=== PATIENT | female | born 1980 | race Two or more races ===

== ENCOUNTER 2016-08-05 00:32 | Inpatient (IN) | payer OTHER ==
[2016-08-05] MEDS ORDERED: HYDROMORPHONE HCL 1 MG/ML SYRINGE ONE ×2 (01:01→03:53)
[2016-08-05 02:06] LABS: ABSOLUTE NEUTROPHIL COUNT 11.7 K/mm3 (1.8-7.7); BASO % 0.3 % (0.2-1.0); EOS % 0.2 % (0.9-2.9); HEMATOCRIT 32.8 % (37.0-47.0); HEMOGLOBIN 10.6 gm/l (12.0-16.0); IMM NEUT # 0.1 K/mm3 (0-0.2); IMM NEUT% 0.3 % (0-1); LYMPH % 13.7 % (15-45); MEAN CELL VOLUME 78.3 fl (81.0-99.0); MEAN CORPUSCULAR HEMOGLOBIN 25.3 pg (27.0-31.0); MEAN CORPUSCULAR HGB CONC 32.3 g/dl (33.0-37.0); MEAN PLATELET VOLUME 11.4 fl (7.4-10.4); MONO # 0.7 (0.0-0.8); MONO % 5.1 % (4-12); NEUT % 80.4 % (43-75); PLATELET COUNT 272 K/mm3 (130-400); RED CELL DISTRIBUTION WIDTH 13.9 % (11.5-14.5)
[2016-08-05 02:16] LABS: ALB/GLOB RATIO 1.1 (>1.0); ALBUMIN 3.6 gm/dL (3.5-5.7); CALCIUM 8.6 mg/dL (8.6-10.3)
[2016-08-05] MEDS ORDERED: LACTATED RINGERS 1,000 ML ONE (03:34)
[2016-08-05] MEDS ORDERED: FENTANYL 5 ML ONE (03:41)
[2016-08-05] MEDS ORDERED: MIDAZOLAM HCL 1 MG/ML 2ML VIAL ONE ×2 (03:41→04:46)
[2016-08-05] MEDS ORDERED: ONDANSETRON 4 MG/2ML 2 ML VIAL ONE ×2 (03:53→05:33)
[2016-08-05] MEDS ORDERED: CEFAZOLIN SODIUM 2 GRAM DUPLEX 2 G in Premix (D5W) 50 ml 1 EACH IV PRN (04:14)
[2016-08-05] MEDS ORDERED: LIDOCAINE 1% 2 ML VIAL ID PRN (04:14)
[2016-08-05] MEDS ORDERED: CEFAZOLIN SODIUM 1,000 MG VIAL ONE (04:35)
[2016-08-05] MEDS ORDERED: ROCURONIUM BROMIDE 10 MG/ML DOSE IV ONE (04:35)
[2016-08-05] MEDS ORDERED: DIPHENHYDRAMINE HCL 50 MG/1 ML VIAL ONE (04:35)
[2016-08-05] MEDS ORDERED: LIDOCAINE 2% (MULTI DOSE) 10 ML VIAL ONE (04:35)
[2016-08-05] MEDS ORDERED: PROPOFOL 20 ML IV ONE (04:35)
[2016-08-05] MEDS ORDERED: GLYCOPYRROLATE 0.2 MG/ML 1ML VIAL ONE (04:38)
[2016-08-05] MEDS ORDERED: NEOSTIGMINE METHYLSULFATE 1 MG/ML DOSE ONE (04:38)
[2016-08-05] MEDS ORDERED: ATROPINE SULFATE 0.4 MG/1 ML VIAL IV PRN (04:53)
[2016-08-05] MEDS ORDERED: PROMETHAZINE HCL 25 MG/ML VIAL IM PRN (04:53)
[2016-08-05] MEDS ORDERED: NALOXONE HCL 0.4 MG/ML VIAL IV PRN (04:53)
[2016-08-05] MEDS ORDERED: HYDROMORPHONE HCL 1 MG/ML SYRINGE IV PRN (04:53)
[2016-08-05] MEDS ORDERED: SODIUM CHLORIDE 0.9% 1,000 ML IV SCH (05:00)
[2016-08-05] MEDS ORDERED: KETOROLAC TROMETHAMINE 30 MG/ML 1 ML VIAL ONE (05:35)
[2016-08-05] MEDS: FENTANYL 100 MCG/2 ML VIAL IV PRN ×2 (06:32→06:39)
[2016-08-05] MEDS ORDERED: DIPHENHYDRAMINE HCL 50 MG/1 ML VIAL IV PRN (06:59)
[2016-08-05] MEDS ORDERED: MENTHOL/CETYLPYRD 1 EACH LOZENGE PO PRN (06:59)
[2016-08-05] MEDS ORDERED: DOCUSATE SODIUM 100 MG CAPSULE PO PRN (06:59)
[2016-08-05] MEDS ORDERED: MAGNESIUM HYDROXIDE/AL HYDROX 30 ML UDCUP PO PRN (06:59)
[2016-08-05] MEDS ORDERED: BLISTEX LIPSTICK 1 EACH TP PRN (06:59)
[2016-08-05] MEDS ORDERED: KETOROLAC TROMETHAMINE 30 MG/ML 1 ML VIAL IV SCH (06:59)
[2016-08-05] MEDS ORDERED: ACETAMINOPHEN 325 MG TABLET PO PRN (06:59)
[2016-08-05] MEDS ORDERED: MAG HYDROX/AL HYDROX/SIMETH 30 ML UDCUP PO PRN (06:59)
[2016-08-05] MEDS ORDERED: HYDROMORPHONE HCL 2 MG/ML SYRINGE IV PRN (07:40)
[2016-08-05 07:46] VITALS: BMI 29.2
[2016-08-05] MEDS: INSULIN REGULAR HUMAN (DOSE) 100 UNITS/1 ML SUB-Q SCH ×2 (07:56→11:43)
[2016-08-05] MEDS ORDERED: PUMP TUBING ONE (07:57)
[2016-08-05] MEDS: CEFTRIAXONE 1 GRAM DUPLEX 1 G in Premix (D5W) 50 ml 1 EACH IV SCH ×2 (08:03→19:50)
[2016-08-05] MEDS: LACTATED RINGERS 1,000 ML IV SCH ×3 (08:03→23:32)
--- NOTE | 2016-08-05 08:25 | HP ---
Radha Trinidad [id number] DATE OF ADMISSION: 08/05/2016 PREOPERATIVE DIAGNOSES: 1. Right lower quadrant pain. 2. Right ovarian cyst. 3. Possible ovarian torsion. PROCEDURE: Exploratory laparotomy with right salpingo-oophorectomy. HISTORY AND PHYSICAL: The patient is a 36-year-old 5, para 4-0-1-4 with last menstrual period of 07/12/2016. The patient initially started having right lower quadrant one month ago and was seen in the emergency room. At that time, an ultrasound was performed which showed a right ovary measuring 5.0 x 4.7 x 5.2 cm. There was a flow identified within the right ovary and there is a nonvascular low echogenicity structure seen in the right ovary measuring 2.9 x 2.6 x 2.6 cm and this was consistent with the CT scan report. The patient states that her pain initially got improved since that emergency room visits, however, subsequently last night she woke up feeling diaphoretic and with right lower quadrant pain and came back to the emergency department. A repeat ultrasound shows a 10 cm right ovary with a 7.8 cm right ovarian mass. Patient's HCG was negative. Patient was examined and found to be in exquisite pain. 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 PAST MEDICAL HISTORY: Patient states that she is diabetic and on metformin. Patient states that her morning fasting glucose are typically less than 100 and her glucoses throughout the day are in the 100's, however, it is noted that on patient's basic metabolic panel both last month and this month her glucoses were greater than 300. PAST SURGICAL HISTORY: section x4. ALLERGIES: No known drug allergies. MEDICATIONS: Patient is currently on metformin. PHYSICAL EXAMINATION: GENERAL: Patient is alert and appropriate. She is guarding and appears to be in pain. HEART: Regular rate and rhythm. LUNGS: Clear to auscultation bilaterally. ABDOMEN: Obese, soft, however, with right lower quadrant tenderness. Normal active bowel sounds. Patient appears to be guarding. PELVIC: There is right adnexal fullness and tenderness. EXTREMITIES: Normal. ASSESSMENT AND PLAN: This is a 36-year-old female with 10 cm right ovary and ovarian cyst. There was blood flow seen on the ultrasound to the ovary, however, patient's clinical presentation is concerning for ovarian torsion. I have recommended exploratory laparotomy with right salpingo-oophorectomy at this time. Procedure indications and risks have been reviewed including risks of bleeding, infection, or injury to bowel, bladder, or other organs. Preoperative instructions and postoperative expectations have been reviewed. The patient's laboratory studies are notable for a white blood cell of 14.6, hemoglobin of 10.6, and a glucose of 329. We will proceed with surgery and address patient's diabetic issues postoperatively. Thank you very much for this dictation. JOB: [id number]
[2016-08-05] MEDS: METRONIDAZOLE 500 MG/NS 100 ML 500 MG in Premix (NS) 100 ml 1 EACH IV SCH ×2 (08:41→20:58)
--- NOTE | 2016-08-05 08:48 | US ---
Clinical indication: Right lower quadrant pain. Possible adnexal lesion. Technique: Limited Transabdominal pelvic sonography was performed.To better visualize the adnexa transvaginal sonography was performed. Comparison: Prior exam dated 07/10/2016. Findings: Sonographic interrogation the right ovary exhibits enlargement and heterogeneity. The ovary measures 10.1 x 6.6 x 8.3 cm. This is increased in size since the prior examination. Some Doppler flow is noted centrally. Small slip of fluid is seen adjacent to the ovary. IMPRESSION: Enlarging apparent hemorrhagic/complex cyst involving the right ovary. Secondary possibilities would include an endometrioma. Neoplasm is currently considered less likely. There is Doppler flow and there is no evidence of complete torsion. Findings were communicated by [facility] to the emergency department at: 2:22 AM 08/05/2016
--- NOTE | 2016-08-05 09:32 | OP ---
Radha Trinidad [id number] DATE OF PROCEDURE: 08/05/2016 PREOPERATIVE DIAGNOSES: 1. Right lower quadrant pain. 2. Ovarian cyst. 3. Possible ovarian torsion. POSTOPERATIVE DIAGNOSES: 1. Right lower quadrant pain. 2. Ovarian cyst. 3. Right tubo-ovarian abscess. PROCEDURE: Exploratory laparotomy with right salpingo-oophorectomy. SURGEON: Ronny Christopher M.D. ANESTHESIA: General. ESTIMATED BLOOD LOSS: 100 mL. OPERATIVE FINDINGS: Include a 10 cm right tubo-ovarian abscess which was densely adhered to the right pelvic side wall, left ovarian tube appeared normal, the uterus also appeared normal. COMPLICATIONS: None. OPERATIVE COURSE: The patient was taken to the operating room and placed under general anesthesia. The patient was in the supine position with a Mckeon catheter and prepped and draped in a sterile fashion. A pfannenstiel incision was made and taken down to the level of the fascia. The fascia was incised transversely and dissected bilaterally off of the underlying rectus muscle. The rectus muscle was grasped with Livier clamps and elevated and a midline incision was made with the scalpel. Peritoneum was then subsequently entered, stretched, and dissected superiorly with curved Cazares scissors. Upon entering into the peritoneal cavity there was purulent discharge that was noted and this was sent for culture. Subsequently, the bowel was then packed and a Krysten retractor was then placed. There appeared to be a large right ovarian complex which was densely adhered to the right pelvic side wall. Upon dissection into this there was a leakage of copious amounts of purulent discharge and this was suctioned. Subsequently, using sharp and blunt dissection the ovary was dissected off of the right pelvic side wall and broad ligament, as well as the round ligament. The Fallopian tube was then identified and doubly clamped proximally, bisected, and suture ligated. At this point, the ovary could be mobilized and it was elevated and the right infundibulopelvic ligament was then doubly clamped, cut, and then sutured ligated. Subsequently, the ovary was then further dissected proximally and the posterior aspect of the broad ligament was then doubly clamped, cut, and then sutured ligated with 0 Vicryl. At this point, the ovary was then excised and sent for pathology. The pelvis was then copiously irrigated with saline and the points of bleeding were then cauterized. The right round ligament appeared intact. The left ovary and tube appeared also within normal limits as well as the uterus. The infundibulopelvic ligament pedicle appeared hemostatic. Subsequently, all sponges and retractors were then removed. Counts were correct at this time. The peritoneum was then closed with 0 Vicryl and the rectus muscle was reapproximated. The fascia was then closed with 0 Vicryl in a continuous fashion. Subcutaneous space was then reapproximated with 0 Vicryl and the skin was then closed with srikanth. The patient was then recovered from anesthesia and taken to recovery room in stable condition. Thank you very much for this dictation. JOB: [id number]
[2016-08-05] MEDS: HYDROMORPHONE HCL 1 MG/ML SYRINGE IV PRN ×2 (09:53→19:50)
[2016-08-05] MEDS: KETOROLAC TROMETHAMINE 30 MG/ML 1 ML VIAL IV SCH ×3 (11:34→23:32)
[2016-08-05] MEDS ORDERED: INSULIN REGULAR HUMAN (DOSE) 100 UNITS/1 ML SUB-Q ONE (11:42)
--- NOTE | 2016-08-05 12:57 | CONS ---
Radha Trinidad [id number] DATE OF ADMISSION: August 05, 2016 DATE OF CONSULTATION: August 05, 2016 PHYSICIAN REQUESTING CONSULTATION: Dr. Ronny Christopher REASON FOR CONSULTATION: Assistance in management of the patient's uncontrolled diabetes. PROCEDURES: PERFORMED DURING THE HOSPITALIZATION: Includes a exploratory laparotomy with right salpingo-oophorectomy performed earlier this morning. TO SUMMARIZE THE ADMISSION AND HOSPITAL COURSE: The patient is a 36-year-old 5, para 4 female with a negative test who presented with complaints of right lower quadrant pain present for the past month which has progressively worsened. She was initially seen on July 10 in the emergency department and was found to have a right ovarian cyst. She was felt to have a simple cyst and then had persistent pain and returned on August 04 this time showing an elevated white blood cell count and more complex right ovarian mass felt to be consistent with hemorrhagic cyst, possibly an abscess. On exploratory laparotomy it was felt that she had a tubo-ovarian abscess and culture was performed and is pending. She has been noted to have hyperglycemia during her stay and we have been asked to consult to assist in management of this problem. REVIEW OF SYSTEMS: Significant for some chills about 24 hours prior to admission. She denies any recent upper respiratory symptoms, cough, dyspnea, chest pain, shortness of breath, or palpitations. She has had no nausea or vomiting. No diarrhea or constipation. She has had the right lower quadrant pain as mentioned above. She denies any new arthralgia's. No headaches, fainting, blackouts, or seizures. No urinary complaints. No recent travel. PAST MEDICAL HISTORY: Negative for any chronic medical problems except for adult onset diabetes. She has been controlled with oral medications and this has been present for the past 16 to 17 years. She has had no medical hospitalizations. No complications from her diabetes and no other chronic medical problems. PAST SURGICAL HISTORY: Significant for four prior sections plus exploratory laparotomy with salpingo-oophorectomy earlier today. ALLERGIES: She has no known drug allergies. CURRENT MEDICATIONS: 1. Metformin 1000 mg twice daily. 2. Glucotrol 5 mg by mouth twice daily. FAMILY HISTORY: Significant for both parents with diabetes. SOCIAL HISTORY: She is a single parent with four children. She denies alcohol, tobacco, or illicit drug use. Her primary care provider is [facility]. PHYSICAL EXAMINATION: VITAL SIGNS: Body mass index 29.3, weight is 68.0 kg, temperature is 98.6, pulse 106, blood pressure 99/52, respirations 14, oxygen saturation are 96% on room air. GENERAL: This is a well-developed, well-nourished female who is slightly somnolent, but in no acute distress. HEENT: Unremarkable. NECK: Supple without lymphadenopathy or thyromegaly. LUNGS: Clear to auscultation bilaterally. CARDIOVASCULAR: Reveals a mild tachycardia, no murmur. ABDOMEN: Diffuse uncomfortable worse in the lower abdomen. Bowel sounds are slightly hypoactive. A surgical dressing is present over the lower abdomen. PELVIC: Deferred. RECTAL: Deferred. EXTREMITIES: Show no peripheral edema. SKIN: Shows no rashes. DIAGNOSTIC IMAGING REPORTS: Included a transvaginal pelvic ultrasound showing an enlarging complex cyst in the right ovary measuring 10 x 6.6 x 8.3 cm, this was performed preoperatively. LABORATORY STUDIES: Showed a white blood cell count elevated at 14.6, hemoglobin of 10.6, platelet count of 272,000. Chemistry profile showed a sodium of 130, potassium 3.6, creatinine 0.4, glucose 329, normal liver function test. Urine test was negative. ASSESSMENT: The patient has uncontrolled diabetes likely due to her infection and hemoglobin A1c is pending. She will be placed on sliding scale NovoLog. I am going to get her back on her Glucotrol as her diet is advanced. I am going to hold the metformin and will follow her in perioperative period. Anticipate she should be ready medically for discharge whenever her surgical problem is cleared. She has a history of a right tubo-ovarian abscess, culture is pending covered with Rocephin and Flagyl. Agree with her current antibiotic choice and we will continue to follow her until she is ready for discharge at which point she will be followed by her primary care provider at [facility]. JOB: [id number] CC: Dr. Ronny Christopher [facility]
[2016-08-05] MEDS: GLIPIZIDE 5 MG TABLET PO SCH (16:45)
[2016-08-05] MEDS: OXYCODONE/ACETAMINOPHEN 5/325 MG TABLET PO PRN (16:45)
[2016-08-05] MEDS: INSULIN REGULAR HUMAN (DOSE) 100 UNITS/1 ML SUB-Q PRN (17:26)
--- NOTE | 2016-08-05 21:15 | PDOC36 ---
Provider Note Subject: Post-op Note Note: Radha was feeling hot and sweat was dripping down her neck when I first came in. Approx 15 min later she felt more comfortable; she quit sweating and color was improved. No chills. Pt denied pain. Not hungry. Tired and sleepy off and on. Exam: VS reviewed. Temp low 97.6, high 99.6 at 5 pm. Clinically I suspect that she had a fever and was defervescing when I came in. lungs clear Heart RRR. Pulse was approx 120 and thready initially but now about 95 regular and strong urine output today has been 400ccamber colored urine with some blood tinge per RN. Presently urine is light yellow and flowing well. Abd soft, rounded, more tender on right side. Dressing clean and dry. Active bowel sounds. Imp: Diabetic with chronic TOA drained surgically this morning. Culture showed 2+WBC but no organism yet id'd. Pt has not been out of bed. Infection is being treated with ceftriaxone and flagyl. I am concerned about her possible fever. Pt seems to have a high pain threshold. Plan: We will repeat her lab work tonight. Monitor VS q4 hours thru the night. Pt agrees to get out of bed tonight, walking.
[2016-08-05 21:26] LABS: ABSOLUTE NEUTROPHIL COUNT 8.4 K/mm3 (1.8-7.7); BASO % 0.1 % (0.2-1.0); EOS % 0.1 % (0.9-2.9); HEMATOCRIT 26.4 % (37.0-47.0); HEMOGLOBIN 8.4 gm/l (12.0-16.0); IMM NEUT% 0.4 % (0-1); LYMPH # 1.4 (1.0-4.8); LYMPH % 13.1 % (15-45); MEAN CELL VOLUME 79.5 fl (81.0-99.0); MEAN CORPUSCULAR HEMOGLOBIN 25.3 pg (27.0-31.0); MEAN CORPUSCULAR HGB CONC 31.8 g/dl (33.0-37.0); MEAN PLATELET VOLUME 10.6 fl (7.4-10.4); MONO # 0.5 (0.0-0.8); MONO % 5.1 % (4-12); NEUT % 81.2 % (43-75); PLATELET COUNT 217 K/mm3 (130-400)
[2016-08-05 22:12] LABS: ALBUMIN 2.7 gm/dL (3.5-5.7); CALCIUM 7.6 mg/dL (8.6-10.3)
[2016-08-05 22:47] LABS: PLATELET ESTIMATE NORMAL (NORMAL)
[2016-08-06] MEDS ORDERED: IV START KIT ONE ×3 (03:58→04:37)
[2016-08-06] MEDS ORDERED: SODIUM CHLORIDE 0.9% FLUSH 10 ML ONE ×3 (03:58→04:36)
[2016-08-06] MEDS: OXYCODONE/ACETAMINOPHEN 5/325 MG TABLET PO PRN ×3 (04:01→23:10)
[2016-08-06] MEDS: KETOROLAC TROMETHAMINE 30 MG/ML 1 ML VIAL IV SCH ×3 (05:55→17:07)
[2016-08-06 06:20] LABS: HEMATOCRIT 26.1 % (37.0-47.0); HEMOGLOBIN 8.2 gm/l (12.0-16.0); MEAN CELL VOLUME 81.1 fl (81.0-99.0); MEAN CORPUSCULAR HEMOGLOBIN 25.5 pg (27.0-31.0); MEAN CORPUSCULAR HGB CONC 31.4 g/dl (33.0-37.0); RED CELL DISTRIBUTION WIDTH 14.1 % (11.5-14.5)
[2016-08-06 06:33] LABS: CALCIUM 7.6 mg/dL (8.6-10.3)
[2016-08-06] MEDS ORDERED: POTASSIUM CHLORIDE 40 MEQ in SODIUM CHLORIDE 0.9% 500 ML IV ONE ×2 (06:44→08:00)
--- NOTE | 2016-08-06 07:36 | PDOC43 ---
- Subjective Postop Day #1 Subjective: Reports Pain Tolerable (pt indicates pain is controlled with meds), Reports Tolerating PO Regular (tolerating a little PO), Reports Other (was able to ambulate to chair yesterday), Denies Flatus, Denies Chest Pain, Denies Shortness of Breath, Denies Nausea, Denies Fever - Objective Vital Signs Temperature 97.8 F 08/06/16 07:22 Pulse Rate 76 08/06/16 07:22 Respiratory Rate 16 08/06/16 07:22 Blood Pressure 88/50 08/06/16 07:22 O2 Saturation by Pulse Oximetry 97 08/06/16 07:22 Oxygen Delivery Method Room Air Oxygen Flow Rate 0 Laboratory 08/06/16 05:30 08/06/16 05:30 08/06/16 08/05/16 08/05/16 05:30 21:17 20:57 RBC 3.22 L 3.32 L MCV 79.5 L MCH 25.5 L 25.3 L MCHC 31.4 L 31.8 L BUN 5 L 6 L Estimated GFR 182 H 182 H POC Capillary Glucose 195 H Calcium 7.6 L 7.6 L Magnesium 1.5 L AST 9 L ALT 5 L Total Protein 5.4 L Albumin 2.7 L 08/05/16 08/05/16 08/05/16 16:48 14:04 12:31 RBC MCV MCH MCHC BUN Estimated GFR POC Capillary Glucose 173 H 209 H 240 H Calcium Magnesium AST ALT Total Protein Albumin 08/05/16 08/05/16 11:36 08:47 RBC MCV MCH MCHC BUN Estimated GFR POC Capillary Glucose 248 H 279 H Calcium Magnesium AST ALT Total Protein Albumin Active Medication Orders Category Date Time Status Acetaminophen [Tylenol] Med 08/05/16 06:59 Active 325 - 650 mg PO Q4H PRN Ceftriaxone 1 Gram Duplex [Rocephin 1 Gram Premix] 1 g Med 08/05/16 08:00 Active Premix (D5W) 50 ml 1 each IV Q12H Diphenhydramine HCl [Benadryl] Med 08/05/16 06:59 Active 25 mg IV Q6H PRN Docusate Sodium [Colace] Med 08/05/16 06:59 Active 100 mg PO BID PRN Glipizide [Glucotrol] Med 08/05/16 16:00 Active 5 mg PO BIDAC Hydromorphone HCl [Dilaudid] Med 08/05/16 06:59 Active 1 - 2 mg IV Q2H PRN Hydromorphone HCl [Dilaudid] Med 08/05/16 07:40 Active 1 - 2 mg IV Q2H PRN Insulin Regular Human (Dose) [Novolin R (Dose)] Med 08/05/16 06:59 Active See Protocol SUB-Q Q6H PRN Ketorolac Tromethamine [Toradol] Med 08/05/16 12:00 Active 30 mg IV Q6H LR 1,000 ml Med 08/05/16 06:59 Active Lactated Ringers 1,000 ml IV 125 mls/hr Lip Muse [Blistex] Med 08/05/16 06:59 Active 1 each TP PRN PRN Magnesium Hydroxide/Al Hydrox [Maalox] Med 08/05/16 06:59 Active 30 ml PO Q4H PRN Magnesium/Al Hydrox/Simeth [Maalox Plus] Med 08/05/16 06:59 Active 30 ml PO Q4H PRN Menthol/Cetylpyridinium [Cepacol] Med 08/05/16 06:59 Active 1 each PO PRN PRN Metronidazole 500 mg/Ns 100 ml [Flagyl 500 mg IV] 500 Med 08/05/16 09:00 Active mg Premix (NS) 100 ml 1 each IV Q12HR Ondansetron 4 mg/2ml Vial [Zofran] Med 08/05/16 06:59 Active 4 mg IV Q4H PRN Oxycodone HCl/Acetaminophen [Percocet 5/325] Med 08/05/16 06:59 Active 1 - 2 tab PO Q4H PRN Pneumococcal 23-Bri P-Sac Vac Med 08/06/16 09:00 Once 0.5 ml IM V .ONCE ONE Potassium Chloride 40 meq Med 08/06/16 06:44 Active Sodium Chloride 0.9% 500 ml IV X1 Sodium Chloride 0.9% Flush [Normal Saline 10ml Flush] Med 08/05/16 06:59 Active 10 - 50 ml IV PRN PRN Sodium Chloride 0.9% Flush [Normal Saline 10ml Flush] Med 08/05/16 09:00 Active 10 ml IV Q8HR Intake and Output 01/04/1208/05/16 08/06/16 23:59 23:59 23:59 Intake Total 4340 2644 Output Total 950 1100 Balance 3390 1544 Lungs: Clear to Auscultation Bilaterally Cardiovascular: Regular Rate and Rhythm Abdomen: Soft, Tenderness (appropriately tender), Non-Distended, Normal Bowel Sounds Wound 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 Continue antibiotics - cephtriaxone and flagyl. Pt would need discharge with PO antibiotics. Cultures are pending. BP low however not tachycardic. Hgb is stable (8.2 <-- 8.4) and urine output appears adequate. Continue IV fluid. Start iron. Remove Mckeon today. Ambulate. Diabetes - glucose control getting better with insulin regimen - management per hospitalist.)
[2016-08-06] MEDS: GLIPIZIDE 5 MG TABLET PO SCH ×2 (08:10→16:30)
[2016-08-06 08:38] LABS: A1C-GLYCOHEMOGLOBIN 0.7 g/dl; HEMOGLOBIN-GLYCO 7.5 g/dl
[2016-08-06] MEDS ORDERED: PUMP TUBING ONE ×2 (08:51→21:09)
[2016-08-06] MEDS: LACTATED RINGERS 1,000 ML IV SCH (08:58)
[2016-08-06] MEDS ORDERED: PNEUMOCOCCAL 23-VAL P-SAC VAC 0.5 ML VIAL IM V ONE (09:00)
[2016-08-06] MEDS: CEFTRIAXONE 1 GRAM DUPLEX 1 G in Premix (D5W) 50 ml 1 EACH IV SCH ×2 (09:01→21:19)
[2016-08-06] MEDS ORDERED: MAGNESIUM SULFATE 2 G/50 ML 2 G in Premix (Water) 50 ml 1 EACH IV ONE (09:30)
[2016-08-06] MEDS: INSULIN REGULAR HUMAN (DOSE) 100 UNITS/1 ML SUB-Q PRN ×4 (09:51→22:23)
[2016-08-06] MEDS: FERROUS SULFATE (65 Fe) 325 MG TABLET PO SCH ×2 (09:51→21:28)
[2016-08-06] MEDS: METRONIDAZOLE 500 MG/NS 100 ML 500 MG in Premix (NS) 100 ml 1 EACH IV SCH ×2 (09:52→22:08)
--- NOTE | 2016-08-06 10:57 | PDOC43 ---
- Subjective Chief Complaint: pelvic pain Subjective: Reports Pain Tolerable, Reports Tolerating Diet Well, Denies Fever - Objective Vital Signs Temperature 97.8 F 08/06/16 07:22 Pulse Rate 76 08/06/16 07:22 Respiratory Rate 16 08/06/16 07:22 Blood Pressure 88/50 08/06/16 07:22 O2 Saturation by Pulse Oximetry 97 08/06/16 07:22 Oxygen Delivery Method Room Air Oxygen Flow Rate 0 Intake and Output 08/05/16 08/06/16 08/07/16 06:59 06:59 06:59 Intake Total 6984 Output Total 2050 350 Balance 4934 -350 General: Alert, Oriented x3, Cooperative, No Acute Distress HEENT: Mucous membr. moist/pink Lungs: Clear to Auscultation Bilaterally Cardiovascular: Regular Rate and Rhythm Abdomen: Soft, Normal Bowel Sounds, Non-Distended, Other (usual post-op discomfort), No Tenderness Extremities: No Edema Skin: Warm, Dry, Intact Wound: Dressing Clean/Dry/Intact Laboratory 08/06/16 05:30 08/06/16 05:30 08/06/16 08/06/16 08/05/16 08:08 05:30 21:17 RBC 3.22 L 3.32 L MCV 79.5 L MCH 25.5 L 25.3 L MCHC 31.4 L 31.8 L BUN 5 L 6 L Estimated GFR 182 H 182 H POC Capillary Glucose 178 H Hemoglobin A1c 11.2 H Calcium 7.6 L 7.6 L Magnesium 1.5 L AST 9 L ALT 5 L Total Protein 5.4 L Albumin 2.7 L 08/05/16 08/05/16 08/05/16 20:57 16:48 14:04 RBC MCV MCH MCHC BUN Estimated GFR POC Capillary Glucose 195 H 173 H 209 H Hemoglobin A1c Calcium Magnesium AST ALT Total Protein Albumin 08/05/16 08/05/16 12:31 11:36 RBC MCV MCH MCHC BUN Estimated GFR POC Capillary Glucose 240 H 248 H Hemoglobin A1c Calcium Magnesium AST ALT Total Protein Albumin Current Medications: Current meds reviewed in EMR. - Problems: Assessment/Plan (1) TOA (tubo-ovarian abscess) Status: Acute Assessment/Plan: S/P exp. lap. with right oophorectomy POD#[address] Christopher, Cx growing streptococcus species, should be covered with rocephin and flagyl, await sens. (2) Diabetes Qualifiers: Diabetes mellitus type: type 2 Diabetes mellitus complication status: with hyperglycemia Diabetes mellitus regional driver insulin use: without regional driver use Qualifier Code: (E11.65) Type 2 diabetes mellitus with hyperglycemia Status: Acute Assessment/Plan: poorly controlled with HGBA1C of 11.2-resume Metformin, may increase Glucotrol dose, may need Lantus in future, ?compliance, nutrition consulted (3) Acute blood loss anemia Status: Acute Assessment/Plan: HGB dropped from 10.6 to 8.2, not symptomatic- iron therapy, will follow VTE Prophylaxis: [facility] measures Disposition: awaiting sens, possibly [place] in am, dispo per gynecology service
[2016-08-06] MEDS: POTASSIUM CHLORIDE 20 MEQ TAB.PRT.SR PO SCH ×2 (12:27→21:28)
[2016-08-06] MEDS: Magnesium Oxide 400 MG TABLET PO SCH ×2 (12:27→21:28)
[2016-08-06] MEDS: ONDANSETRON 4 MG/2ML 2 ML VIAL IV PRN ×3 (14:24→22:24)
[2016-08-06] MEDS: METFORMIN HCL 1,000 MG TABLET PO SCH (16:30)
[2016-08-06] MEDS ORDERED: SODIUM CHLORIDE 0.9% 100 ML IV ONE (21:09)
[2016-08-06] MEDS ORDERED: SODIUM CHLORIDE 0.9% 100 ML BAG IV PRN (21:17)
[2016-08-07] MEDS: KETOROLAC TROMETHAMINE 30 MG/ML 1 ML VIAL IV SCH ×3 (00:12→11:20)
[2016-08-07] MEDS: OXYCODONE/ACETAMINOPHEN 5/325 MG TABLET PO PRN (04:19)
[2016-08-07] MEDS: ONDANSETRON 4 MG/2ML 2 ML VIAL IV PRN ×3 (04:37→11:20)
[2016-08-07] MEDS: METFORMIN HCL 1,000 MG TABLET PO SCH (06:07)
[2016-08-07] MEDS: GLIPIZIDE 5 MG TABLET PO SCH (06:07)
[2016-08-07 07:20] LABS: MAGNESIUM 1.9 mg/dL (1.9-2.7)
[2016-08-07] MEDS: CEFTRIAXONE 1 GRAM DUPLEX 1 G in Premix (D5W) 50 ml 1 EACH IV SCH (07:37)
[2016-08-07] MEDS ORDERED: GLIPIZIDE 5 MG TABLET PO SCH (07:52)
[2016-08-07] MEDS ORDERED: INSULIN GLARGINE (DOSE) 100 UNITS/ML UNIT SUB-Q SCH (08:00)
[2016-08-07] MEDS: INSULIN REGULAR HUMAN (DOSE) 100 UNITS/1 ML SUB-Q PRN ×2 (08:00→11:32)
[2016-08-07] MEDS: METRONIDAZOLE 500 MG/NS 100 ML 500 MG in Premix (NS) 100 ml 1 EACH IV SCH (09:13)
[2016-08-07] MEDS: FERROUS SULFATE (65 Fe) 325 MG TABLET PO SCH (10:05)
[2016-08-07] MEDS: POTASSIUM CHLORIDE 20 MEQ TAB.PRT.SR PO SCH (10:05)
[2016-08-07] MEDS: Magnesium Oxide 400 MG TABLET PO SCH (10:06)
--- NOTE | 2016-08-07 10:51 | PDOC43 ---
- Subjective Chief Complaint: pelvic pain Subjective: Reports Pain Tolerable, Denies Vomiting, Denies Fever - Objective Vital Signs Temperature 97.8 F 08/07/16 07:46 Pulse Rate 89 08/07/16 07:46 Respiratory Rate 16 08/07/16 07:46 Blood Pressure 97/61 08/07/16 07:46 O2 Saturation by Pulse Oximetry 98 08/07/16 07:46 Oxygen Delivery Method Room Air Oxygen Flow Rate 0 Intake and Output 08/06/16 08/07/16 08/08/16 06:59 06:59 06:59 Intake Total 6984 3689 Output Total 2050 2650 Balance 4934 1039 General: Alert, Oriented x3, Cooperative, No Acute Distress HEENT: Mucous membr. moist/pink Lungs: Clear to Auscultation Bilaterally Cardiovascular: Regular Rate and Rhythm Abdomen: Soft, Normal Bowel Sounds, Non-Distended, Other (usual post-op pain), No Tenderness Extremities: No Edema Skin: Warm, Dry, Intact Wound: Dressing Clean/Dry/Intact Laboratory 08/06/16 05:30 08/07/16 06:00 08/07/16 08/07/16 08/06/16 07:45 06:00 21:50 BUN 4 L Estimated GFR 182 H POC Capillary Glucose 225 H 204 H Calcium 8.0 L 08/06/16 08/06/16 16:28 12:31 BUN Estimated GFR POC Capillary Glucose 233 H 249 H Calcium Current Medications: Current meds reviewed in EMR. - Problems: Assessment/Plan (1) TOA (tubo-ovarian abscess) Status: Acute Assessment/Plan: S/P exp. lap. with right oophorectomy POD#[address] Christopher, Cx growing streptococcus species, should be covered with Augmentin (2) Diabetes Qualifiers: Diabetes mellitus type: type 2 Diabetes mellitus complication status: with hyperglycemia Diabetes mellitus snf insulin use: without rat exterminator use Qualifier Code: (E11.65) Type 2 diabetes mellitus with hyperglycemia Status: Acute Assessment/Plan: poorly controlled with HGBA1C of 11.2-resume Metformin, will increase Glucotrol dose, and add Lantus, patient knows how to administer insulin (3) Acute blood loss anemia Status: Acute Assessment/Plan: HGB dropped from 10.6 to 8.2, not symptomatic- iron therapy VTE Prophylaxis: [facility] measures Disposition: Anticipate discharge today
[2016-08-07 11:18] VITALS: BP 107/72
--- NOTE | 2016-08-08 14:10 | SURGPATH ---
[facility] [address] [place] [id number] Patient Name: ASHLEE WILLETT MR#: [id number] : 1980 Gender: F Specimen #: [id number] Collected: 08/05/2016 Received: 08/06/2016 Reported: 08/08/2016 Submitting Phys: DORENE CAVANAUGH Copy To Phys: [facility] Clinical History / Pre-Operative Diagnosis: OVARIAN CYST, OVARIAN TORSION; RIGHT Specimen Source / Surgical Procedure Performed: Right ovary and fallopian tube Interpretation: RESECTION, RIGHT OVARY AND FALLOPIAN TUBE: - ACUTE SALPINGO-OOPHORITIS WITH TUBOOVARIAN ABSCESS AND ADHESIONS. Electronically Signed Out Sandy Smith M.D. Gross Description: The specimen is received in a formalin filled container labeled with the patient's name and "right ovary and fallopian tube". An enlarged, hemorrhagic red-dash ovary is 7.8 x 5.0 x 3.5 cm and 111 g. The corresponding purple dash fallopian tube with free and delicate fimbriated end is 8.0 x 2.0 cm. The outer surface of the ovary and fallopian tube are hemorrhagic with adherent fibrinopurulent exudate. The ovary is bisected to reveal a 5.5 cm cystic cavity. The wall of the cavity is fibrotic and thickened to 1.5 cm. The lining is shaggy, soft and hemorrhagic. Within the cavity wall is a 1.5 cm hemorrhagic corpus luteum, compressed to the periphery. Multiple sections of cavity wall including adjacent fallopian tube are submitted in cassettes A-H. [facility] [place] Microscopic Description: Sections of the right ovary show an abscess containing abundant acute inflammation, blood and fibrin. The parenchyma adjacent to the abscess displays chronic inflammation and fibrosis. Elsewhere in the ovary, there is a corpus luteum and cystic follicles. The right fallopian tube is adherent to the ovary via fibrous and fibrinous adhesions with inflammatory exudate. Acute inflammation is also noted within the fallopian tube lumen and mucosa. There is no evidence of neoplasm. [id number] N70.03
--- NOTE | 2016-08-11 11:10 | DS ---
Radha Trinidad [id number] DATE OF ADMISSION: 08/05/2016 DATE OF DISCHARGE: 08/07/2016 ADMITTING DIAGNOSES: 1. Right lower quadrant pain. 2. Right ovarian cyst. 3. Possible ovarian torsion. DISCHARGE DIAGNOSES: 1. Right lower quadrant pain. 2. Right tubo-ovarian abscess. 3. Status post exploratory laparotomy with right salpingo-oophorectomy. PROCEDURE PERFORMED: Exploratory laparotomy with right salpingo-oophorectomy. HOSPITAL COURSE: The patient is a 36-year-old 5, para 4-0-1-4 who was evaluated in the emergency room with right lower quadrant pain. Upon a previous emergency department admission was noted to have a right ovarian cyst measuring 2.9 x 2.6 x 2.6 cm. The patient was exquisitely tender in the right lower quadrant and subsequently a repeat ultrasound showed a 10 cm right ovary with a 7.8 cm right ovarian mass on the day of admission. The patient was subsequently taken to the operating room and operative findings include a right tubo-ovarian abscess. An exploratory laparotomy with right salpingo-oophorectomy was performed. There was a 10 cm right tubo-ovarian abscess which was densely adhered to the right pelvic side wall. Left ovary and tube appeared normal and the uterus also appeared normal. Postoperatively, the patient was continued on antibiotics with ceftriaxone and Flagyl. The patient's hemoglobin was stable with a postoperative hemoglobin of 8.2. The patient also has very poorly controlled diabetes with initial serum glucose in the 300's and this was managed by Dr. Botello with the hospitalist service. On postoperative day two the patient was doing much better and was subsequently discharged in stable condition. The patient was discharged with prescription for Augmentin and Percocet. She was also given prescription for glipizide, ibuprofen, insulin, iron, and Reglan. The patient will follow up in one week in the office for reevaluation. JOB: [id number]
== END 2016-08-07 13:55 | disposition home or self-care (01) | DRG 743 ==
LOC: ED 00:32 → MS 03:33 → SDC 03:33 → MS 05:58
PROVIDERS: ADMIT Obstetrics & Gynecology; ATTEND Obstetrics & Gynecology
PROC: 0UT54ZZ Resection of Right Fallopian Tube, Percutaneous Endoscopic Approach (ICD-10-PCS; principal; 2016-08-05)
PROC: 0UT04ZZ Resection of Right Ovary, Percutaneous Endoscopic Approach (ICD-10-PCS; 2016-08-05)
DX: N83.511 Torsion of right ovary and ovarian pedicle (principal); N83.201 Unspecified ovarian cyst, right side; E11.9 Type 2 diabetes mellitus without complications; Z79.84 Long term (current) use of oral hypoglycemic drugs; N70.92 Oophoritis, unspecified; R00.0 Tachycardia, unspecified